=== PATIENT | female | born 1995 | race Caucasian/White ===

== ENCOUNTER 2024-04-01 01:41 | Inpatient (IN) | payer OTHER, SELFPAY ==
[2024-04-01 01:50] VITALS: BMI 22.8
[2024-04-01 01:59] VITALS: BP 116/79
[2024-04-01] MEDS: LR 1000 IV ×2 (02:10→03:15)
[2024-04-01] MEDS: SUBLIMAZE 100 MCG EPIDURAL (03:34)
[2024-04-01] MEDS: FENTANYL/BUPIVACAINE 100 EPIDURAL (03:34)
[2024-04-01 03:46] LABS: % Basophils 0.3 % (0-2); % Eosinophils 0.7 % (0-6); % Immature Granulocytes 0.7 % (0-0.5); % Lymphocytes 18.5 % (20.5-51.1); % Monocytes 6.8 % (1.7-9.3); Absolute Eosinophils 0.1 10^3/uL (0-0.7); Absolute Immature Granulocytes 0.1 10^3/uL (0-0.05); Absolute Lymphocytes 2.3 10^3/uL (1.2-3.4); Absolute Monocytes 0.8 10^3/uL (0.1-0.6); Absolute Neutrophils 8.9 10^3/uL (1.4-6.5); Hematocrit 34.3 % (37.0-47.0); Hemoglobin 11.4 g/dL (12.0-16.0); Mean Corp Hgb Conc. 33.2 g/dL (33.0-37.0); Mean Corpuscular Hgb 29.7 pg (27.0-31.0); Mean Corpuscular Volume 89.3 fL (81.0-99.0); Mean Platelet Volume 10.5 fL (7.4-10.4); Nucleated Red Blood Cells % 0 %; Platelet Count 337 10^3/uL (130-400); Red Blood Cell Count 3.84 10^6/uL (4.20-5.40); Red Cell Dist. Width 13.5 % (11.5-14.5); White Blood Cell Count 12.2 10^3/uL (4.8-10.8)
[2024-04-01] MEDS: PITOCIN 30 UNITS/NSS 500 ML IV (06:08)
[2024-04-01] MEDS: TYLENOL 650 MG PO (10:52)
[2024-04-01] MEDS: MOTRIN 600 MG PO (14:50)
[2024-04-01] MEDS: TORADOL 15 MG IV (19:21)
[2024-04-02] MEDS: TYLENOL 650 MG PO (00:07)
[2024-04-02] MEDS: MOTRIN 600 MG PO ×3 (04:46→23:12)
--- NOTE | 2024-04-02 10:39 | CON.MD ---
Medical Consultation
- -
Pt seen for complaints of positional headache. The patient had an epidural placed at [address] [place]. No evidnece of dural puncture and the epidural worked appropriately at a normal infusion rate. She delivered at 0600. Her headache complaints
started 6 hours later. Mainly frontal headache progressing to neck stiffness. No associated cranial nerve dysfunction. VSS.
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
Plan: Epidural blood patch. Risks/benefits explained and consent obtained.
[2024-04-02 10:40] VITALS: BP 106/72
[2024-04-02 10:45] VITALS: BP 116/81
[2024-04-02 10:58] VITALS: BP 111/80
[2024-04-02 11:00] VITALS: BP 104/66
--- NOTE | 2024-04-02 11:01 | W.PN.ANES ---
Anesthesia Note
- -
04/02/24 11:01
Epidural blood patch performed after consent obtained. Midazolam 2 mg IV given and Normosol IV hung. Pt sitting. Back prepped with chloraprep and draped sterilely with maximum barrier protection. Lidocaine given subQ into back at L2-3 - site of
the epidural puncture site. 18 G epidural needle placed easily with BRYSON to air. No fluid seen in needle. New IV started with chloraprep prep in R arm. 20 ml of autologous blood drawn and injected through the epidural needle. No pressure
symptoms reported. Bandaid placed on puncture site. Plan to run 500 ml fluid to rehydrate patient. Pt to remain supine for 4 hours (2:30 pm). No heavy lifting or straining x 3 days.
[2024-04-02 11:15] VITALS: BP 105/69
--- NOTE | 2024-04-02 11:54 | SUR.PHASEI ---
Pt transported to [facility] in stretcher and started c/o pain at blood patch site. She stated it was 08/28. Dr Castano aware and expected per gauze needle used.
[2024-04-02 16:24] LABS: Syphilis/T. pallidum Ab Reflex Negative (Negative)
[2024-04-03] MEDS: MOTRIN 600 MG PO (11:19)
== END 2024-04-03 14:00 | disposition home or self-care (01) | DRG 807 ==
LOC: LDRP 01:41
PROVIDERS: ADMITTING PHYSICIAN Obstetrics & Gynecology; ATTENDING PHYSICIAN Advanced Practice Midwife
PROC: 10E0XZZ Delivery of Products of Conception, External Approach (ICD-10-PCS; 2024-04-01)
DX: O48.0 Post-term pregnancy (principal); Z37.0 Single live birth; Z3A.40 40 weeks gestation of pregnancy
CPT/HCPCS: 36415; 85025; 86780; 86850; 86900; 86901